=== PATIENT | male | born 1975 | race Caucasian/White ===

== ENCOUNTER 2016-05-28 16:32 | Emergency (ER) | payer OTHER ==
[~2016-05-28] VITALS: Ht 162.6 cm; Wt 68.2 kg
[~2016-05-28 16:32] MED LIST: ADDERALL10 MG PO; ADDERALL20 MG PO; BENTYL 10MG10 MG/CAP PO; BENTYL 20MG20 MG/TAB PO; CARAFATE 1GM1 G PO; CARAFATE1 GM PO; CEPHALEXIN500 M1 PO; DAZIDOX10 MG PO; DOXYCYCLINE 10100 MG PO; FLAGYL500 MG PO; FLEXERIL 1010 MG/TAB PO; FLEXERIL10 MG PO; LEVAQUIN 750MG750 M1 PO; LEVBID0.375 MG PO; LIDODERM PATCH TP; LIORESAL20 MG PO; LORTAB 5/500 501 TAB PO; LORTAB 7.5/5001 TAB PO; METHOCARBAMOL500 MG PO; MOBIC15 MG PO; MOTRIN800 MG PO; MULTIPLE VITAMI1 CAP PO; NEURONTIN800 MG/TAB PO; NEXIUM 40MG40 MG PO; NEXIUM20 MG PO; NEXIUM40 MG PO; NORCO 325 MG-101 TAB PO; NORCO 325 MG-51 TAB PO; NORCO 325 MG-7.1 TAB PO; OMEPRAZOLE D/R20 MG PO; PERCOCET 325 MG1 TA2 PO; PHENERGAN 25 TA25 MG PO; PHENERGAN W/CO120 ML PO; PREDNISONE20 MG PO; PRIL40; PRILOSEC 20MG20 MG PO; PROBIOTIC-MAJOR PO; PROTONIX 40MG T40 MG PO; RITALIN10 MG PO; ROXICODONE 55 MG/TAB PO; RYZOLT100 MG PO; SENOKOT S 50 MG1 TAB PO; TUMS500 MG PO; TYLENOL 325MG325 MG PO; TYLENOL 500MG500 MG PO; TYLENOL W/COD1 UDTAB PO; ULTRAM 50MG TAB50 MG PO; VERAPAMIL HCL120 M1 PO; VICODIN 5/5001 UDTAB PO; ZANTAC150 MG PO; ZOFRAN 4MG T4 MG/TAB PO; ZOFRAN ODT4 MG PO; ZOFRAN8 MG PO; ZOLOFT 100MG100 MG PO; ZOLOFT100 MG PO; [UNRECOGNIZED DRUG - OTHER] TOP
[2016-05-28 16:34] VITALS: BP 143/81; TEMP 98.5
[2016-05-28] MEDS ORDERED: NORCO 325 MG-51 TAB PO ×2 (16:38→18:07)
[2016-05-28 17:25] LABS: BASO # 0.1 (0.0-0.2); BASO % 0.7 % (0.0-2.0); EOS # 0.5 (0.0-0.7); EOS % 4.7 % (0-4.0); GRAN # 6.6 (1.4-6.5); GRAN % 63.8 % (42.2-75.2); HEMATOCRIT 42.1 % (42.0-52.0); HEMOGLOBIN 14.7 g/dl (13.5-18.0); LYMPH # 2.4 (1.2-3.4); MEAN CELL VOLUME 85 fl (80.0-100.0); MEAN CORPUSCULAR HEMOGLOBIN 30 pg (27.0-31.0); MEAN CORPUSCULAR HGB CONC 35 g/dl (33.0-37.0); MEAN PLATELET VOLUME 9.5 fl (7.4-10.4); MONO # 0.7 (0.1-0.6); MONO % 6.8 % (1.7-9.3); PLATELET COUNT 253 K/mm3 (130-400); RED BLOOD COUNT 4.95 M/mm3 (4.20-5.60); REDCELL DISTRIBUTION WIDTH-CV 13.1 % (11.5-14.5); WHITE BLOOD COUNT 10.3 K/mm3 (4.8-10.8)
[2016-05-28 17:37] LABS: ADJUSTED CALCIUM 9.1 mg/dL (8.4-10.2); ALBUMIN 4.7 gm/dL (3.5-5.0); BILIRUBIN,TOTAL 0.8 mg/dL (0.0-1.0); CALCIUM 9.7 mg/dL (8.4-10.2); CREATININE, serum 0.75 mg/dL (0.66-1.25); POTASSIUM 3.9 mmol/L (3.4-5.0); TOTAL PROTEIN 7.3 gm/dL (6.4-8.2)
[2016-05-28 17:40] LABS: PH 8 (5-8); SQUAMOUS EPITHELIAL 0-2 /hpf; URINE APPEARANCE Cloudy; URINE BACTERIA Rare /hpf; URINE BILIRUBIN Negative (NEGATIVE); URINE BLOOD Negative (NEGATIVE); URINE COLOR Yellow; URINE GLUCOSE Negative (NEGATIVE); URINE KETONE Negative (NEGATIVE); URINE RBC 0-2 /hpf; URINE UROBILINOGEN Negative (NEGATIVE)
[2016-05-28] MEDS ORDERED: PHENERGAN 25 TA25 MG PO (18:07)
[2016-05-28 18:34] VITALS: PULSE 66
== END 2016-05-28 18:36 | disposition home or self-care (01) ==
LOC: COL.ER 16:32
PROVIDERS: Physician Assistant
DX: R10.12 Left upper quadrant pain (principal)
CPT/HCPCS: J1170; J2765; J7030

== ENCOUNTER 2016-10-22 15:52 | Emergency (ER) | payer OTHER ==
[~2016-10-22] VITALS: Ht 162.6 cm; Wt 65.9 kg
[2016-10-22 15:59] VITALS: TEMP 98.7
[2016-10-22] MEDS ORDERED: PERCOCET 325 MG1 TA3 PO (16:01)
[2016-10-22 16:58] LABS: BASO # 0.1 (0.0-0.2); BASO % 0.5 % (0.0-2.0); EOS # 0.3 (0.0-0.7); EOS % 3.4 % (0-4.0); GRAN # 6.3 (1.4-6.5); GRAN % 63.8 % (42.2-75.2); HEMATOCRIT 40.7 % (42.0-52.0); HEMOGLOBIN 14.6 g/dl (13.5-18.0); LYMPH # 2.2 (1.2-3.4); LYMPH % 21.9 % (20.0-51.0); MEAN CELL VOLUME 87 fl (80.0-100.0); MEAN CORPUSCULAR HEMOGLOBIN 31 pg (27.0-31.0); MEAN CORPUSCULAR HGB CONC 36 g/dl (33.0-37.0); MEAN PLATELET VOLUME 9.8 fl (7.4-10.4); MONO # 0.9 (0.1-0.6); PLATELET COUNT 279 K/mm3 (130-400); RED BLOOD COUNT 4.66 M/mm3 (4.20-5.60); REDCELL DISTRIBUTION WIDTH-CV 12.3 % (11.5-14.5); WHITE BLOOD COUNT 9.9 K/mm3 (4.8-10.8)
[2016-10-22 17:14] LABS: ALANINE AMINOTRANSFERASE 45 U/L (21-72); ALBUMIN 4.3 gm/dL (3.5-5.0); ALKALINE PHOSPHATASE 72 U/L (50-136); ANION GAP 11 mmol/L (7-16); BILIRUBIN,TOTAL 0.4 mg/dL (0.0-1.0); BLOOD UREA NITROGEN 18 mg/dL (9-20); CALCIUM 9.2 mg/dL (8.4-10.2); CARBON DIOXIDE 24 mmol/L (22-30); CHLORIDE 102 mmol/L (98-107); CREATININE, serum 0.69 mg/dL (0.66-1.25); GLUCOSE 89 mg/dL (74-106); LIPASE 171 U/L (23-300); POTASSIUM 4.1 mmol/L (3.4-5.0); SODIUM 136 mmol/L (137-145); TOTAL PROTEIN 6.6 gm/dL (6.4-8.2)
[2016-10-22 17:18] LABS: C-REACTIVE PROTEIN < 0.5 mg/dL (0.0-0.9)
[2016-10-22 17:28] LABS: PH 7 (5-8); SQUAMOUS EPITHELIAL None Seen /hpf; URINE APPEARANCE Cloudy; URINE BACTERIA None Seen /hpf; URINE BILIRUBIN Negative (NEGATIVE); URINE BLOOD Negative (NEGATIVE); URINE COLOR Yellow; URINE GLUCOSE Negative (NEGATIVE); URINE KETONE Negative (NEGATIVE); URINE RBC 0-2 /hpf; URINE UROBILINOGEN Negative (NEGATIVE); URINE WBC 0-2 /hpf
[2016-10-22 18:29] VITALS: BP 133/85; PULSE 68
== END 2016-10-22 18:34 | disposition home or self-care (01) ==
LOC: COL.ER 15:52
PROVIDERS: Physician Assistant Medical
DX: R10.31 Right lower quadrant pain (principal); Z87.19 Personal history of other diseases of the digestive system; Z87.820 Personal history of traumatic brain injury; Z98.890 Other specified postprocedural states
CPT/HCPCS: J2270; J2405; J7030

== ENCOUNTER 2017-03-14 11:31 | Emergency (ER) | payer OTHER ==
[~2017-03-14] VITALS: Ht 162.6 cm; Wt 68.2 kg
[~2017-03-14 11:31] MED LIST changes: +PERCOCET 325 MG1 TA3 PO
[2017-03-14 11:38] VITALS: TEMP 97.6
[2017-03-14 13:20] LABS: BASO % 0.4 % (0.0-2.0); EOS # 0.2 (0.0-0.7); EOS % 2.7 % (0-4.0); GRAN # 5.3 (1.4-6.5); GRAN % 65.3 % (42.2-75.2); HEMATOCRIT 44.3 % (42.0-52.0); HEMOGLOBIN 15.3 g/dl (13.5-18.0); LYMPH # 1.9 (1.2-3.4); LYMPH % 23.6 % (20.0-51.0); MEAN CELL VOLUME 89 fl (80.0-100.0); MEAN CORPUSCULAR HEMOGLOBIN 31 pg (27.0-31.0); MEAN CORPUSCULAR HGB CONC 35 g/dl (33.0-37.0); MEAN PLATELET VOLUME 9.9 fl (7.4-10.4); MONO # 0.6 (0.1-0.6); MONO % 7.4 % (1.7-9.3); PLATELET COUNT 204 K/mm3 (130-400); RED BLOOD COUNT 4.99 M/mm3 (4.20-5.60); WHITE BLOOD COUNT 8.1 K/mm3 (4.8-10.8)
[2017-03-14 13:28] LABS: ADJUSTED CALCIUM 8.9 mg/dL (8.4-10.2); ALANINE AMINOTRANSFERASE 48 U/L (21-72); ALBUMIN 4.9 gm/dL (3.5-5.0); ALKALINE PHOSPHATASE 79 U/L (50-136); AMYLASE 92 U/L (30-110); ANION GAP 11 mmol/L (7-16); BILIRUBIN,TOTAL 0.8 mg/dL (0.0-1.0); BLOOD UREA NITROGEN 15 mg/dL (9-20); CALCIUM 9.6 mg/dL (8.4-10.2); CARBON DIOXIDE 24 mmol/L (22-30); CHLORIDE 101 mmol/L (98-107); CREATININE, serum 0.86 mg/dL (0.66-1.25); GLUCOSE 107 mg/dL (74-106); LIPASE 101 U/L (23-300); SODIUM 137 mmol/L (137-145); TOTAL PROTEIN 7.1 gm/dL (6.4-8.2)
[2017-03-14 13:29] LABS: C-REACTIVE PROTEIN < 0.5 mg/dL (0.0-0.9)
[2017-03-14 14:15] LABS: COLLECTION METHOD CLEAN CATCH
[2017-03-14 14:28] LABS: PH 7 (5-8); SQUAMOUS EPITHELIAL None Seen /hpf; URINE APPEARANCE Clear; URINE BACTERIA None Seen /hpf; URINE BILIRUBIN Negative (NEGATIVE); URINE BLOOD 2+ (NEGATIVE); URINE COLOR Yellow; URINE GLUCOSE Negative (NEGATIVE); URINE KETONE Negative (NEGATIVE); URINE LEUKOCYTE ESTERASE Negative (NEGATIVE); URINE PROTEIN(semi-quant) Negative (NEGATIVE); URINE UROBILINOGEN Negative (NEGATIVE); URINE WBC None Seen /hpf
[2017-03-14] MEDS ORDERED: CARAFATE S1 GM/10 ML PO (17:12)
[2017-03-14 17:22] VITALS: BP 130/97; PULSE 70
== END 2017-03-14 17:23 | disposition home or self-care (01) ==
LOC: COL.ER 11:31
PROVIDERS: Nurse Practitioner
DX: R10.13 Epigastric pain (principal); F43.10 Post-traumatic stress disorder, unspecified; F17.210 Nicotine dependence, cigarettes, uncomplicated; Z96.89 Presence of other specified functional implants
CPT/HCPCS: J1170; J2270; J2405; J7030; J7050; Q9967

== ENCOUNTER 2017-07-15 11:16 | Day surgery (SDC) | payer OTHER ==
[~2017-07-15] VITALS: Ht 162.6 cm; Wt 65.6 kg
[~2017-07-15 11:16] MED LIST changes: +CARAFATE S1 GM/10 ML PO
[2017-07-15 11:37] VITALS: BP 124/77; PULSE 79; TEMP 97.8
[2017-07-15] MEDS ORDERED: NORCO 325 MG-101 TAB PO (12:03)
[2017-07-15 14:47] VITALS: TEMP 99
[2017-07-15 15:00] VITALS: BP 121/86; PULSE 78
[2017-07-15 15:15] VITALS: BP 121/68; PULSE 73
[2017-07-15] MEDS ORDERED: PERCOCET 325 MG1 TA2 PO (15:15)
[2017-07-15 15:30] VITALS: BP 121/71; PULSE 72
[2017-07-15 15:45] VITALS: BP 122/74; PULSE 86
== END 2017-07-15 15:58 | disposition home or self-care (01) ==
LOC: SDCO 11:16
DX: A63.0 Anogenital (venereal) warts (principal); F90.9 Attention-deficit hyperactivity disorder, unspecified type; F41.9 Anxiety disorder, unspecified; K22.70 Barrett's esophagus without dysplasia; K21.9 Gastro-esophageal reflux disease without esophagitis; F43.10 Post-traumatic stress disorder, unspecified; F17.210 Nicotine dependence, cigarettes, uncomplicated; F32.9 Major depressive disorder, single episode, unspecified; K50.90 Crohn's disease, unspecified, without complications; R53.83 Other fatigue; N50.819 Testicular pain, unspecified
CPT/HCPCS: J0690; J1100; J2270; J2405; J2704; J3010; J7120

== ENCOUNTER 2017-08-30 12:18 | Emergency (ER) | payer OTHER ==
[~2017-08-30] VITALS: Ht 162.6 cm; Wt 64.5 kg
[2017-08-30 12:22] VITALS: TEMP 98.1
[2017-08-30] MEDS ORDERED: CARAFATE 1GM1 G PO (12:25)
[2017-08-30 12:56] LABS: COLLECTION METHOD CLEAN CATCH
[2017-08-30 13:06] LABS: BASO % 0.4 % (0.0-2.0); EOS # 0.2 (0.0-0.7); EOS % 2.7 % (0-4.0); GRAN % 65.8 % (42.2-75.2); HEMATOCRIT 44.2 % (42.0-52.0); HEMOGLOBIN 15.6 g/dl (13.5-18.0); LYMPH # 1.7 (1.2-3.4); LYMPH % 22.5 % (20.0-51.0); MEAN CELL VOLUME 86 fl (80.0-100.0); MEAN CORPUSCULAR HEMOGLOBIN 30 pg (27.0-31.0); MEAN CORPUSCULAR HGB CONC 35 g/dl (33.0-37.0); MONO # 0.6 (0.1-0.6); MONO % 7.7 % (1.7-9.3); PLATELET COUNT 203 K/mm3 (130-400); RED BLOOD COUNT 5.13 M/mm3 (4.20-5.60); REDCELL DISTRIBUTION WIDTH-CV 12.1 % (11.5-14.5)
[2017-08-30 13:10] LABS: MUCOUS Present /lpf; PH 6 (5-8); SQUAMOUS EPITHELIAL None Seen /hpf; URINE APPEARANCE Clear; URINE BACTERIA None Seen /hpf; URINE BILIRUBIN Negative (NEGATIVE); URINE BLOOD Negative (NEGATIVE); URINE COLOR Yellow; URINE GLUCOSE Negative (NEGATIVE); URINE KETONE Negative (NEGATIVE); URINE LEUKOCYTE ESTERASE Negative (NEGATIVE); URINE NITRATE Negative (NEGATIVE); URINE PROTEIN(semi-quant) Negative (NEGATIVE); URINE RBC 0-2 /hpf; URINE UROBILINOGEN Negative (NEGATIVE)
[2017-08-30 13:17] LABS: ALBUMIN 4.4 gm/dL (3.5-5.0); BILIRUBIN,TOTAL 0.5 mg/dL (0.0-1.0); CALCIUM 9.5 mg/dL (8.4-10.2); CREATININE, serum 0.71 mg/dL (0.66-1.25); POTASSIUM 4.1 mmol/L (3.4-5.0); TOTAL PROTEIN 7.5 gm/dL (6.4-8.2)
[2017-08-30] MEDS ORDERED: PRIL40 PO (14:07)
[2017-08-30 14:28] VITALS: BP 127/86; PULSE 76
== END 2017-08-30 14:30 | disposition home or self-care (01) ==
LOC: COL.ER 12:18
PROVIDERS: Emergency Medicine
DX: K29.70 Gastritis, unspecified, without bleeding (principal); K21.9 Gastro-esophageal reflux disease without esophagitis; F43.10 Post-traumatic stress disorder, unspecified; Z90.49 Acquired absence of other specified parts of digestive tract; F17.210 Nicotine dependence, cigarettes, uncomplicated; Z98.890 Other specified postprocedural states
CPT/HCPCS: J2405

== ENCOUNTER 2017-09-26 14:44 | Emergency (ER) | payer OTHER ==
[~2017-09-26] VITALS: Ht 162.6 cm; Wt 65.9 kg
[~2017-09-26 14:44] MED LIST changes: +PRIL40 PO
[2017-09-26 15:33] LABS: BASO % 0.4 % (0.0-2.0); EOS # 0.2 (0.0-0.7); EOS % 2.2 % (0-4.0); GRAN # 7.1 (1.4-6.5); GRAN % 70.4 % (42.2-75.2); HEMATOCRIT 43.4 % (42.0-52.0); HEMOGLOBIN 15.3 g/dl (13.5-18.0); LYMPH # 1.9 (1.2-3.4); MEAN CELL VOLUME 86 fl (80.0-100.0); MEAN CORPUSCULAR HEMOGLOBIN 30 pg (27.0-31.0); MEAN CORPUSCULAR HGB CONC 35 g/dl (33.0-37.0); MEAN PLATELET VOLUME 9.7 fl (7.4-10.4); MONO # 0.8 (0.1-0.6); MONO % 7.5 % (1.7-9.3); PLATELET COUNT 213 K/mm3 (130-400); RED BLOOD COUNT 5.03 M/mm3 (4.20-5.60); REDCELL DISTRIBUTION WIDTH-CV 13.1 % (11.5-14.5)
[2017-09-26 15:41] LABS: ALANINE AMINOTRANSFERASE 39 U/L (21-72); ALBUMIN 4.6 gm/dL (3.5-5.0); ALKALINE PHOSPHATASE 96 U/L (50-136); ANION GAP 13 mmol/L (7-16); AST,SGOT 28 U/L (15-37); BILIRUBIN,TOTAL 0.6 mg/dL (0.0-1.0); BLOOD UREA NITROGEN 12 mg/dL (9-20); CARBON DIOXIDE 25 mmol/L (22-30); CHLORIDE 100 mmol/L (98-107); CREATININE, serum 0.73 mg/dL (0.66-1.25); GLUCOSE 103 mg/dL (74-106); POTASSIUM 3.9 mmol/L (3.4-5.0); SODIUM 137 mmol/L (137-145); TOTAL PROTEIN 7.3 gm/dL (6.4-8.2)
[2017-09-26 15:42] LABS: ACETAMINOPHEN < 10 ug/mL (10-30); ALCOHOL(ethanol),MEDICAL < 10 mg/dL
[2017-09-26 16:03] LABS: COLLECTION METHOD CLEAN CATCH
[2017-09-26 16:11] LABS: PH 5 (5-8); SQUAMOUS EPITHELIAL None Seen /hpf; URINE APPEARANCE Clear; URINE BACTERIA None Seen /hpf; URINE BILIRUBIN Negative (NEGATIVE); URINE BLOOD Negative (NEGATIVE); URINE COLOR Yellow; URINE GLUCOSE Negative (NEGATIVE); URINE KETONE Negative (NEGATIVE); URINE LEUKOCYTE ESTERASE Negative (NEGATIVE); URINE NITRATE Negative (NEGATIVE); URINE PROTEIN(semi-quant) Negative (NEGATIVE); URINE RBC None Seen /hpf; URINE UROBILINOGEN Negative (NEGATIVE)
[2017-09-26 16:22] LABS: TRICYCLIC ANTIDEPRESS URINE NEGATIVE
[2017-09-26 18:35] VITALS: BP 128/77; TEMP 98.1
[2017-09-26 20:44] VITALS: PULSE 78
== END 2017-09-26 20:44 | disposition home or self-care (01) ==
LOC: COL.ER 14:44
PROVIDERS: Nurse Practitioner
DX: F41.9 Anxiety disorder, unspecified (principal); F43.10 Post-traumatic stress disorder, unspecified; F32.9 Major depressive disorder, single episode, unspecified; F17.210 Nicotine dependence, cigarettes, uncomplicated

== ENCOUNTER 2019-02-02 19:11 | Emergency (ER) | payer OTHER ==
[~2019-02-02] VITALS: Ht 160 cm; Wt 68.2 kg
[2019-02-02 19:14] VITALS: TEMP 98.2
[2019-02-02 19:26] LABS: BASO # 0.1 (0.0-0.2); BASO % 0.5 % (0.0-2.0); EOS # 0.3 (0.0-0.7); EOS % 2.3 % (0-4.0); GRAN # 8.3 (1.4-6.5); GRAN % 63.5 % (42.2-75.2); HEMATOCRIT 44.2 % (42.0-52.0); HEMOGLOBIN 15.6 g/dl (13.5-18.0); LYMPH # 2.9 (1.2-3.4); LYMPH % 22.4 % (20.0-51.0); MEAN CELL VOLUME 87 fl (80.0-100.0); MEAN CORPUSCULAR HEMOGLOBIN 31 pg (27.0-31.0); MEAN CORPUSCULAR HGB CONC 35 g/dl (33.0-37.0); MEAN PLATELET VOLUME 9.7 fl (7.4-10.4); MONO # 1.4 (0.1-0.6); MONO % 10.8 % (1.7-9.3); PLATELET COUNT 233 K/mm3 (130-400); RED BLOOD COUNT 5.11 M/mm3 (4.20-5.60); REDCELL DISTRIBUTION WIDTH-CV 12.7 % (11.5-14.5)
[2019-02-02 19:44] LABS: ALANINE AMINOTRANSFERASE 26 U/L (21-72); ALBUMIN 4.7 gm/dL (3.5-5.0); ALKALINE PHOSPHATASE 88 U/L (50-136); ANION GAP 14 mmol/L (7-16); AST,SGOT 29 U/L (15-37); BILIRUBIN,TOTAL 0.4 mg/dL (0.0-1.0); BLOOD UREA NITROGEN 19 mg/dL (9-20); CALCIUM 9.7 mg/dL (8.4-10.2); CARBON DIOXIDE 21 mmol/L (22-30); CHLORIDE 101 mmol/L (98-107); CREATININE, serum 1.21 (0.66-1.25); GLUCOSE 89 mg/dL (74-106); LIPASE 205 U/L (23-300); POTASSIUM 4.1 mmol/L (3.4-5.0); SODIUM 135 mmol/L (137-145); TOTAL PROTEIN 7.3 gm/dL (6.4-8.2)
[2019-02-02 19:54] LABS: TROPONIN-I < 0.012 ng/mL (0.000-0.035)
[2019-02-02 20:59] LABS: COLLECTION METHOD CLEAN CATCH
[2019-02-02 21:14] LABS: PH 7 (5-8); SQUAMOUS EPITHELIAL None Seen /hpf; URINE APPEARANCE Clear; URINE BACTERIA None Seen /hpf; URINE BILIRUBIN Negative (NEGATIVE); URINE BLOOD Negative (NEGATIVE); URINE COLOR Yellow; URINE GLUCOSE Negative (NEGATIVE); URINE KETONE Negative (NEGATIVE); URINE LEUKOCYTE ESTERASE Negative (NEGATIVE); URINE NITRATE Negative (NEGATIVE); URINE PROTEIN(semi-quant) Negative (NEGATIVE); URINE RBC None Seen /hpf; URINE UROBILINOGEN Negative (NEGATIVE); URINE WBC None Seen /hpf
[2019-02-02] MEDS ORDERED: FLOMAX 0.40.4 MG/CAP PO (21:49)
[2019-02-02 22:10] VITALS: BP 120/74; PULSE 71
== END 2019-02-02 22:10 | disposition home or self-care (01) ==
LOC: COL.ER 19:11
PROVIDERS: Emergency Medicine
DX: R10.10 Upper abdominal pain, unspecified (principal); F41.0 Panic disorder [episodic paroxysmal anxiety]; F17.210 Nicotine dependence, cigarettes, uncomplicated; F43.10 Post-traumatic stress disorder, unspecified; F41.9 Anxiety disorder, unspecified; Z87.442 Personal history of urinary calculi

== ENCOUNTER → 2020-10-10 | Outpatient (CLI) | payer OTHER ==
[~2020-10-10] MED LIST changes: +FLOMAX 0.40.4 MG/CAP PO
== END ==
LOC: COL.RAD 09-26 08:45
DX: M54.12 Radiculopathy, cervical region (principal)
CPT/HCPCS: A9585

== ENCOUNTER 2020-10-15 09:00 | Outpatient (RCR) | payer OTHER | END 2020-12-05 10:23 | disposition home or self-care (01) | LOC: WSPT 09:00 | DX: M54.12 Radiculopathy, cervical region (principal) ==